=== PATIENT | male | born 1985 | race African-American/Black ===

== ENCOUNTER 2022-09-07 02:42 | Inpatient (IN) | payer MEDICAID, OTHER ==
[~2022-09-07] VITALS: Ht 185.4 cm; Wt 109.0 kg
[2022-09-07] MEDS ORDERED: IPRATROPIUM BROM 0.5 MG/2.5ML INH SOL NEB ONE (03:00)
[2022-09-07] MEDS ORDERED: ALBUTEROL SULF 2.5 MG/0.5ML(0.5%) NEB SOLN NEB ONE (03:00)
[2022-09-07] MEDS: methylPREDNISolone SOD SUCC 125 MG/2 ML VL IV ONE ×2 (03:12→04:30)
[2022-09-07] MEDS ORDERED: DexAMETHasone SOD PHOS 4 MG/1ML SDV INJ IV ONE (03:15)
[2022-09-07 03:18] LABS: Basophils # (auto) 0.1 10 ^3/uL (0-0.2); Basophils % (auto) 1.3 % (0.0-2.0); Eosinophils # (auto) 0.2 10 ^3/uL (0-0.8); Eosinophils % (auto) 2.4 % (0.0-7.0); Hematocrit 35.2 % (41.0-53.0); Hemoglobin 11.7 g/dL (13.5-17.5); Lymphocytes # (auto) 2.4 10 ^3/uL (0.4-5.4); Mean Corpuscular Hemoglobin 27.9 pg (28.0-32.0); Mean Corpuscular Hgb Conc. 33.1 g/dL (32.0-36.0); Mean Corpuscular Volume 84.1 fL (80.0-100.0); Monocytes # (auto) 0.9 10 ^3/uL (0-1.3); Monocytes % (auto) 13.4 % (0.0-12.0); Neutrophils # (auto) 3.1 10 ^3/uL (1.6-8.6); Neutrophils % (auto) 46.9 % (37.0-80.0); Nucleated Red Blood Cells % 0.1 %; Red Blood Cells 4.19 10^6/uL (4.5-5.90); Red Cell Distribution Width 14.3 % (11.8-14.3); White Blood Cell 6.6 10^3/uL (4.4-10.8)
[2022-09-07] MEDS ORDERED: InsuLIN REG 1unit/0.01ml Soln (100units/ml) IV ONE (03:30)
[2022-09-07] MEDS ORDERED: LACTATED RINGER'S 1,000 ML IV ONE (03:30)
[2022-09-07 03:35] LABS: Albumin 2.8 g/dL (3.4-5.0); BUN/Creatinine Ratio 11.8 (10.0-20.0); Calcium 9.4 mg/dL (8.5-10.1); Magnesium 1.8 mg/dL (1.6-2.6); Potassium 3.9 mmol/L (3.5-5.1)
[2022-09-07 03:37] LABS: Bilirubin, Total 0.2 mg/dL (0.2-1.0); Total Protein 7.2 g/dL (6.4-8.2)
[2022-09-07] MEDS ORDERED: IOHEXOL 350 MG/ML 100ML IJ ONE (03:37)
[2022-09-07 03:39] LABS: INR 0.93 (0.9-1.15); Partial Thromboplastin Time 25.2 sec (24.6-33.4)
[2022-09-07] MEDS ORDERED: LORazepam 2MG/ML-1ML VIAL IV PRN (03:45)
[2022-09-07] MEDS ORDERED: LORazepam 2MG/ML-1ML VIAL IV ONE (04:00)
[2022-09-07] MEDS ORDERED: VANCOMYCIN 1GM/250ML 250 ML IV ONE (04:15)
[2022-09-07] MEDS ORDERED: MIDAZOLAM HCL 2MG/2ML 2ml VIAL (1mg/ml) IV ONE (04:15)
[2022-09-07] MEDS ORDERED: AZITHROMYCIN 500MG/ 250ML 250 ML IV ONE (04:15)
[2022-09-07] MEDS ORDERED: PIPERACILLIN-TAZOB 3.375GM 100 ML IV ONE (04:15)
[2022-09-07 05:30] VITALS: BP 163/92
[2022-09-07] MEDS ORDERED: MORPHINE SULFATE INJ 2 MG/ml SYRG IV PRN (06:45)
[2022-09-07] MEDS ORDERED: ACETAMINOPHEN 325 MG TAB PO PRN (06:45)
[2022-09-07] MEDS ORDERED: DEXTROSE (50%) 50ML SYRG IV PRN ×2 (06:45→12:00)
[2022-09-07] MEDS ORDERED: NITROGLYCERIN 0.4 MG SL TAB SL PRN (06:45)
[2022-09-07] MEDS ORDERED: IPRATROPIUM BROM 0.5 MG/2.5ML INH SOL NEB PRN (06:45)
[2022-09-07] MEDS ORDERED: ALBUTEROL SULF 2.5 MG/0.5ML(0.5%) NEB SOLN NEB PRN (06:45)
[2022-09-07] MEDS ORDERED: ONDANSETRON HCL 4 MG/2 ML VIAL IV PRN (06:45)
[2022-09-07] MEDS ORDERED: TEMAZEPAM 15 MG CAP PO PRN (06:45)
[2022-09-07 08:00] VITALS: BP 169/100
[2022-09-07] MEDS ORDERED: ACCU-CHEK COMFORT CURVE STRIP VI SCH (08:00)
[2022-09-07] MEDS ORDERED: InsuLIN REG 1unit/0.01ml Soln (100units/ml) SC SCH (08:00)
[2022-09-07] MEDS: cefTRIAXone 1GM/50ML D5W 50 ML IV SCH (09:20)
[2022-09-07] MEDS: ENOXAPARIN SOD 40 MG/0.4 ML SYRINGE SC SCH ×2 (09:24→09:55)
[2022-09-07] MEDS: methylPREDNISolone SOD SUCC 125 MG/2 ML VL IV SCH ×2 (09:24→21:35)
[2022-09-07] MEDS: LISINOPRIL 5 MG TAB PO SCH (09:25)
[2022-09-07 10:54] LABS: Urine Bacteria NONE SEEN /hpf (None Seen); Urine Blood 1+ /uL (Negative); Urine Specific Gravity 1.044 (1.001-1.035); Urine WBC 2 /hpf (0 - 3)
[2022-09-07] MEDS ORDERED: VANCOMYCIN PER PHARMACY 0 MG IV SCH (11:45)
[2022-09-07] MEDS ORDERED: INSULIN LANTUS (GLARGINE) 1 /0.01ml (100units/ml) SC ONE (12:00)
[2022-09-07] MEDS: ACCU-CHEK COMFORT CURVE STRIP VI SCH ×3 (12:06→20:33)
[2022-09-07] MEDS: InsuLIN REG 1unit/0.01ml Soln (100units/ml) SC SCH ×3 (12:16→20:50)
[2022-09-07] MEDS: VANCOMYCIN 1GM/250ML 250 ML IV SCH ×2 (15:16→23:06)
[2022-09-07] MEDS ORDERED: TAMSULOSIN HYDROCHLORIDE 0.4 MG CAP PO SCH (18:00)
[2022-09-07] MEDS: guaiFENesin-DM 100/10mg/5ml SYR PO PRN (21:24)
[2022-09-08] MEDS: ACCU-CHEK COMFORT CURVE STRIP VI SCH ×4 (05:39→12:00)
[2022-09-08] MEDS: InsuLIN REG 1unit/0.01ml Soln (100units/ml) SC SCH ×4 (05:45→12:00)
[2022-09-08 06:13] LABS: Basophils # (auto) 0 10 ^3/uL (0-0.2); Basophils % (auto) 0.2 % (0.0-2.0); Eosinophils # (auto) 0 10 ^3/uL (0-0.8); Hematocrit 33.5 % (41.0-53.0); Lymphocytes # (auto) 1.2 10 ^3/uL (0.4-5.4); Lymphocytes % (auto) 7.2 % (10.0-50.0); Mean Corpuscular Hemoglobin 27.1 pg (28.0-32.0); Monocytes % (auto) 6.1 % (0.0-12.0); Neutrophils # (auto) 14.4 10 ^3/uL (1.6-8.6); Neutrophils % (auto) 86.5 % (37.0-80.0); Red Blood Cells 4.08 10^6/uL (4.5-5.90); White Blood Cell 16.7 10^3/uL (4.4-10.8)
[2022-09-08 06:42] LABS: Albumin 2.3 g/dL (3.4-5.0); BUN/Creatinine Ratio 23.4 (10.0-20.0); Calcium 8.5 mg/dL (8.5-10.1); Potassium 3.9 mmol/L (3.5-5.1)
[2022-09-08 06:45] LABS: Bilirubin, Total 0.2 mg/dL (0.2-1.0); Total Protein 6.5 g/dL (6.4-8.2)
[2022-09-08] MEDS: VANCOMYCIN 1GM/250ML 250 ML IV SCH (07:02)
[2022-09-08] MEDS: guaiFENesin-DM 100/10mg/5ml SYR PO PRN (08:14)
[2022-09-08] MEDS: cefTRIAXone 1GM/50ML D5W 50 ML IV SCH (09:09)
[2022-09-08] MEDS: ENOXAPARIN SOD 40 MG/0.4 ML SYRINGE SC SCH (09:51)
[2022-09-08] MEDS ORDERED: AZITHROMYCIN 500MG/ 250ML 250 ML IV SCH (10:00)
[2022-09-08] MEDS ORDERED: INSULIN LANTUS (GLARGINE) 1 /0.01ml (100units/ml) SC SCH (10:00)
[2022-09-08] MEDS: LISINOPRIL 5 MG TAB PO SCH (10:01)
[2022-09-08] MEDS: methylPREDNISolone SOD SUCC 125 MG/2 ML VL IV SCH (10:01)
[2022-09-08 12:00] VITALS: BP 143/72
== END 2022-09-08 12:26 | disposition left against medical advice (07) | DRG 139 ==
LOC: ER 02:42 → TELE 06:40
PROVIDERS: ADMIT Nurse Practitioner; ATTEND Internal Medicine
PROC: 5A09357 Assistance with Respiratory Ventilation, Less than 24 Consecutive Hours, Continuous Positive Airway Pressure (ICD-10-PCS; principal; 2022-09-07)
DX: J18.9 Pneumonia, unspecified organism (principal); J96.01 Acute respiratory failure with hypoxia; E11.22 Type 2 diabetes mellitus with diabetic chronic kidney disease; D64.9 Anemia, unspecified; E11.65 Type 2 diabetes mellitus with hyperglycemia; E66.01 Morbid (severe) obesity due to excess calories; Z20.822 Contact with and (suspected) exposure to COVID-19; F17.210 Nicotine dependence, cigarettes, uncomplicated; I12.9 Hypertensive chronic kidney disease with stage 1 through stage 4 chronic kidney disease, or unspecified chronic kidney disease; I16.0 Hypertensive urgency; N18.9 Chronic kidney disease, unspecified; Z53.29 Procedure and treatment not carried out because of patient's decision for other reasons; Z68.31 Body mass index [BMI] 31.0-31.9, adult
CPT/HCPCS: 36415; 36600; 71045; 71275; 80053; 81001; 82805; 82962; 83036; 83735; 83880; 84484; 85025; 85610; 85730; 87426; 87804; 93005; 93970; 94640; 94660; 96361; 96365; 96366; 96368; 96375; 96376; 99291; G0378; J0696; J1100; J1815; J2543

== ENCOUNTER 2023-03-30 01:03 | Inpatient (IN) | payer MEDICAID ==
[~2023-03-30] VITALS: Ht 185.4 cm; Wt 107.7 kg
[2023-03-30] VITALS (8 sets, daily range): BP systolic 156–170; BP diastolic 93–111; PULSE 100–116; RESP 15–25; TEMP 97.9–99.3; O2SAT 93–99
[2023-03-30] MEDS ORDERED: ALBUTEROL MEDNEB 2.5 mg/3ml NEB NEB ONE (01:15)
[2023-03-30] MEDS ORDERED: IPRATROPIUM BROM 0.5 MG/2.5ML INH SOL NEB ONE (01:15)
[2023-03-30 01:33] LABS: Basophils # (auto) 0.1 10 ^3/uL (0-0.2); Eosinophils # (auto) 0.1 10 ^3/uL (0-0.8); Monocytes # (auto) 0.9 10 ^3/uL (0-1.3); Neutrophils # (auto) 3.7 10 ^3/uL (1.6-8.6)
[2023-03-30 01:35] LABS: Basophils % (auto) 0.9 % (0.0-2.0); Eosinophils % (auto) 1.2 % (0.0-7.0); Hematocrit 41.8 % (41.0-53.0); Hemoglobin 13.7 g/dL (13.5-17.5); Lymphocytes # (auto) 3.3 10 ^3/uL (0.4-5.4); Lymphocytes % (auto) 40.7 % (10.0-50.0); Mean Corpuscular Hemoglobin 26.4 pg (28.0-32.0); Mean Corpuscular Hgb Conc. 32.7 g/dL (32.0-36.0); Mean Corpuscular Volume 80.5 fL (80.0-100.0); Neutrophils % (auto) 46.2 % (37.0-80.0); Red Cell Distribution Width 15.2 % (11.8-14.3)
[2023-03-30 01:48] LABS: Partial Thromboplastin Time 25.1 SEC (24.5-34.5); Prothrombin Time 10.5 sec (9.3-11.8)
[2023-03-30 01:53] LABS: Alanine Aminotransferase 24 U/L (7-40); Albumin 4.2 g/dL (3.2-4.8); Alkaline Phosphatase 50 U/L (46-116); Anion Gap 9 (5-15); Aspartate Aminotransferase 23 U/L (13-40); BUN/Creatinine Ratio 6.3 (10.0-20.0); Bilirubin, Total 0.3 mg/dL (0.2-1.0); Blood Urea Nitrogen 10 mg/dL (9-23); Calcium 8.9 mg/dL (8.7-10.4); Carbon Dioxide 24 mmol/L (20-30); Chloride 99 mmol/L (98-107); Potassium 3.7 mmol/L (3.5-5.1); Sodium 132 mmol/L (136-145); Total Protein 6.8 g/dL (5.7-8.2)
[2023-03-30 02:26] LABS: Glucose 447 mg/dL (74-106); Lactic Acid w/Reflex 2.9 mmol/L (0.4-2.0)
[2023-03-30] MEDS ORDERED: LACTATED RINGER'S 2,000 ML IV ONE ×2 (03:00)
[2023-03-30] MEDS ORDERED: cefTRIAXone 1GM/50ML D5W 50 ML IV ONE (03:00)
[2023-03-30] MEDS ORDERED: DexAMETHasone SOD PHOS 10MG/1ML VIAL INJ IV ONE (03:00)
[2023-03-30] MEDS ORDERED: InsuLIN REG 1unit/0.01ml Soln (100units/ml) IV ONE (03:00)
[2023-03-30] MEDS ORDERED: AZITHROMYCIN 500MG/ 250ML 250 ML IV ONE (03:00)
[2023-03-30] MEDS ORDERED: hydrALAZINE HCL 20 MG/ML VL IV ONE (03:30)
[2023-03-30 04:00] LABS: Urine Bacteria NONE SEEN /hpf (None Seen); Urine Blood 1+ /uL (Negative); Urine Clarity Clear (Clear); Urine Color Colorless (Yellow); Urine Mucus FEW (None Seen); Urine Protein, UAD 2+ (Negative); Urine Specific Gravity 1.024 (1.001-1.035); Urine Urobilinogen Normal (Negative); Urine WBC 2 /hpf (0 - 3)
[2023-03-30] MEDS ORDERED: IOHEXOL 350 MG/ML 100ML IJ ONE (04:17)
[2023-03-30] MEDS ORDERED: ASPirin 325 MG TAB PO ONE (06:30)
[2023-03-30] MEDS ORDERED: ENOXAPARIN SOD 100 MG/1 ML SYRINGE SC ONE (06:30)
[2023-03-30] MEDS ORDERED: ACETAMINOPHEN 325 MG TAB PO PRN (07:15)
[2023-03-30] MEDS ORDERED: ONDANSETRON HCL 4 MG/2 ML VIAL IV PRN (07:15)
[2023-03-30] MEDS ORDERED: NITROGLYCERIN 0.4 MG SL TAB SL PRN (07:15)
[2023-03-30] MEDS ORDERED: DEXTROSE (50%) 50ML SYRG IV PRN ×2 (07:15→15:45)
[2023-03-30] MEDS ORDERED: MORPHINE SULFATE INJ 2 MG/ml SYRG IV PRN (07:15)
[2023-03-30] MEDS ORDERED: ALBUTEROL MEDNEB 2.5 mg/3ml NEB NEB PRN (07:15)
[2023-03-30] MEDS ORDERED: LABETALOL HCL 5 MG/ML 4ML SYRINGE IV PRN (07:15)
[2023-03-30] MEDS: InsuLIN REG 1unit/0.01ml Soln (100units/ml) SC SCH ×4 (07:58→20:00)
[2023-03-30] MEDS: ACCU-CHEK COMFORT CURVE STRIP VI SCH ×4 (08:00→20:30)
[2023-03-30 08:06] LABS: LDL Cholesterol 235 mg/dL (< 100); Triglycerides 399 mg/dL (< 150)
[2023-03-30 08:07] LABS: Cholesterol 304 mg/dL (< 200); HDL Cholesterol 27 mg/dL (40-59)
[2023-03-30] MEDS: NIFEdipine ER 30 MG TAB PO SCH (08:52)
[2023-03-30] MEDS: hydrALAZINE HCL 25 MG TAB PO SCH ×3 (09:42→21:44)
[2023-03-30] MEDS: ASPirin 81 mg TAB PO SCH (09:43)
[2023-03-30] MEDS ORDERED: amLODIPine BESYLATE 5 MG TAB PO SCH (10:00)
[2023-03-30] MEDS: PIPERACILLIN-TAZOB 3.375GM 100 ML IV SCH ×2 (14:19→21:44)
[2023-03-30] MEDS: IPRATROPIUM BROM 0.5 MG/2.5ML INH SOL NEB SCH (18:41)
[2023-03-30] MEDS: ALBUTEROL MEDNEB 2.5 mg/3ml NEB NEB SCH (18:41)
[2023-03-30] MEDS ORDERED: INSULIN LANTUS (GLARGINE) 1 /0.01ml (100units/ml) SC SCH (22:00)
[2023-03-30] MEDS ORDERED: ATORVASTATIN 20 MG TAB PO SCH ×3 (22:00)
[2023-03-31] VITALS (8 sets, daily range): BP systolic 134–150; BP diastolic 84–90; PULSE 92–104; RESP 16–22; TEMP 97.9–98.7; O2SAT 96–100
[2023-03-31] MEDS: ACCU-CHEK COMFORT CURVE STRIP VI SCH ×4 (00:19→12:25)
[2023-03-31] MEDS: InsuLIN REG 1unit/0.01ml Soln (100units/ml) SC SCH ×4 (00:23→12:28)
[2023-03-31] MEDS ORDERED: cefTRIAXone 1GM/50ML D5W 50 ML IV SCH (03:00)
[2023-03-31] MEDS ORDERED: AZITHROMYCIN 500MG/ 250ML 250 ML IV SCH (04:00)
[2023-03-31] MEDS: PIPERACILLIN-TAZOB 3.375GM 100 ML IV SCH ×2 (06:17→13:53)
[2023-03-31] MEDS: hydrALAZINE HCL 25 MG TAB PO SCH ×2 (06:23→13:53)
[2023-03-31] MEDS: ALBUTEROL MEDNEB 2.5 mg/3ml NEB NEB SCH ×2 (06:41→12:27)
[2023-03-31] MEDS: IPRATROPIUM BROM 0.5 MG/2.5ML INH SOL NEB SCH ×2 (06:41→12:27)
[2023-03-31 06:55] LABS: Basophils # (auto) 0.1 10 ^3/uL (0-0.2); Basophils % (auto) 0.5 % (0.0-2.0); Eosinophils # (auto) 0 10 ^3/uL (0-0.8); Hemoglobin 11.6 g/dL (13.5-17.5); Monocytes # (auto) 1.5 10 ^3/uL (0-1.3); Neutrophils # (auto) 10.4 10 ^3/uL (1.6-8.6); Nucleated Red Blood Cells % 0.1 %; White Blood Cell 13.6 10^3/uL (4.4-10.8)
[2023-03-31 06:57] LABS: Eosinophils % (auto) 0.1 % (0.0-7.0); Lymphocytes # (auto) 1.6 10 ^3/uL (0.4-5.4); Lymphocytes % (auto) 11.8 % (10.0-50.0); Mean Corpuscular Hemoglobin 26.3 pg (28.0-32.0); Mean Corpuscular Hgb Conc. 33.2 g/dL (32.0-36.0); Mean Corpuscular Volume 79.3 fL (80.0-100.0); Neutrophils % (auto) 76.6 % (37.0-80.0); Red Blood Cells 4.42 10^6/uL (4.5-5.90); Red Cell Distribution Width 15.3 % (11.8-14.3)
[2023-03-31 07:36] LABS: Alanine Aminotransferase 22 U/L (7-40); Albumin 3.7 g/dL (3.2-4.8); Alkaline Phosphatase 36 U/L (46-116); Anion Gap 10 (5-15); Aspartate Aminotransferase 15 U/L (13-40); BUN/Creatinine Ratio 13.6 (10.0-20.0); Bilirubin, Total 0.3 mg/dL (0.2-1.0); Blood Urea Nitrogen 22 mg/dL (9-23); Calcium 8.4 mg/dL (8.7-10.4); Carbon Dioxide 24 mmol/L (20-30); Chloride 105 mmol/L (98-107); Potassium 3.5 mmol/L (3.5-5.1); Sodium 139 mmol/L (136-145); Total Protein 5.8 g/dL (5.7-8.2)
[2023-03-31 07:43] LABS: Glucose 207 mg/dL (74-106)
[2023-03-31] MEDS: NIFEdipine ER 30 MG TAB PO SCH (09:56)
[2023-03-31] MEDS: ASPirin 81 mg TAB PO SCH (09:57)
[2023-03-31] MEDS ORDERED: ASPirin 81 mg TAB PO SCH (10:00)
[2023-03-31] MEDS ORDERED: ENOXAPARIN SOD 40 MG/0.4 ML SYRINGE SC SCH (10:00)
[2023-03-31 11:16] LABS: Rapid Influenza A Negative (Negative); Rapid Influenza B Negative (Negative)
[2023-03-31 11:17] LABS: COVID19 ANTIGEN SOFIA FIA NEGATIVE (NEGATIVE)
[2023-03-31] MEDS ORDERED: DOXY1LIQ18 PO (14:35)
[2023-03-31] MEDS ORDERED: HYDR25TA5 PO (14:35)
[2023-03-31] MEDS ORDERED: ALBUAER3 IN (14:35)
[2023-03-31] MEDS ORDERED: ATOR-47 PO (14:35)
[2023-03-31] MEDS ORDERED: LOSA50TA46 PO (14:35)
[2023-03-31] MEDS ORDERED: ATORVASTATIN 20 MG TAB PO SCH (22:00)
== END 2023-03-31 15:55 | disposition home or self-care (01) | DRG 199 ==
LOC: ER 01:03 → TELE 07:13 → TELE-WESTW 22:22 → WEST WING 03-31 01:34
PROVIDERS: ADMIT Nurse Practitioner; ATTEND Nurse Practitioner Acute Care
DX: I16.0 Hypertensive urgency (principal); J96.01 Acute respiratory failure with hypoxia; R65.11 Systemic inflammatory response syndrome (SIRS) of non-infectious origin with acute organ dysfunction; I21.A1 Myocardial infarction type 2; N17.9 Acute kidney failure, unspecified; E86.0 Dehydration; E11.65 Type 2 diabetes mellitus with hyperglycemia; Z20.822 Contact with and (suspected) exposure to COVID-19; E66.9 Obesity, unspecified; Z68.31 Body mass index [BMI] 31.0-31.9, adult; E78.5 Hyperlipidemia, unspecified; F17.210 Nicotine dependence, cigarettes, uncomplicated; Z79.4 Long term (current) use of insulin; Z87.01 Personal history of pneumonia (recurrent)
CPT/HCPCS: 36415; 71045; 71275; 80053; 80061; 81001; 82962; 83036; 83605; 83880; 84443; 84484; 85025; 85610; 85730; 86703; 87081; 87426; 87804; 93005; 93306; 94640; 99291; G0378; J0696; J1100; J1815; J2543; J3490